=== PATIENT | male | born 1970 | race Caucasian/White ===

== ENCOUNTER 2022-01-22 12:45 | Emergency (ER) | payer OTHER, SELFPAY ==
--- NOTE | ~2022-01-22 | XR_ITS ---
EXAMINATION: XR foot RT min 3V DATE: 01/22/2022 13:09 INDICATION: Right foot injury and pain. TECHNIQUE: 4 views of right foot were obtained. COMPARISON: None. FINDINGS: Bone alignment is normal. No fracture. There is mild osteoarthritis of first metatarsophala ngeal joint and some of the midfoot joints. There is an enthesophyte at posterior aspect of calcaneal tuberosity. IMPRESSION: 1. Mild polyarticular osteoarthritis. Reviewed, dictated and finalized at location A.
[2022-01-22 12:56] VITALS: BP 146/91; PULSE 95; RESP 18; TEMP 36.3; O2SAT 98
[2022-01-22 13:01] VITALS: BP 146/91; PULSE 95; RESP 18; TEMP 36.3; O2SAT 98
--- NOTE | 2022-01-22 13:35 | ED.LOWEXIN ---
HPI - Extremity Injury (Lower) General Chief Complaint: Extremity Injury, Lower Stated Complaint: Right Foot Pain Time Seen by Provider: 01/22/22 13:35 Source: patient, RN notes reviewed and old records reviewed Mode of arrival: ambulatory Limitations: no limitations History of Present Illness HPI Narrative: 51-year-old male presents to the [facility] with complaints of right foot pain. Patient states that he was carrying some heavy objects when he rolled his foot a couple days ago. Spent yesterday golfing. Woke up today with lateral foot pain. No treatment prior to arrival. Patient is also requesting that his right ear get checked. Has had some pressure in it. Related Data Allergies Allergy/AdvReac Type Severity Reaction Status Date / Time No Known Allergies Allergy Verified 01/22/22 12:52 Review of Systems Review of Systems: All systems reviewed & are unremarkable except as noted in HPI and below Constitutional: Constitutional: Reports no additional constitutional complaints, Denies chills and Denies fever(s) Eyes: Eyes: Reports no additional eye complaints ENT: Reports as per HPI Cardiovascular: Cardiovascular: Reports no additional cardiovascular complaints Respiratory: Respiratory: Reports no additional respiratory complaints Gastrointestinal: Gastrointestinal: Reports no additional gastrointestinal complaints Musculoskeletal: Musculoskeletal: Reports as per HPI Integumentary/Breasts: Skin/Breast: Reports system reviewed and no additional complaints, except as docu Neurologic: Reports system reviewed and no additional complaints, except as documented Psychiatric: Psychiatric: Reports no additional psychiatric complaints Allergic/Immunologic: Allergic/Immunologic: Reports no additional allergic/immunologic complaints PMFSH Past Medical History Medical History Body mass index (BMI) of 40.1-44.9 in adult Family History Family History Mother Family history of diabetes mellitus in first degree relative Diabetes mellitus Grandparent Family history of lung cancer Family history of malignant neoplasm of breast Father COPD (chronic obstructive pulmonary disease) Hypoglycemia Sibling No problems noted. 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 There is no relevant family history pertinent to the patient complaint. Exam Const: General: healthy appearing, no acute distress and alert Nutritional Appearance: well nourished Orientation/consciousness: patient oriented x3 Limitations: no limitations HENMT: Head: normal to inspection Ears: external ears normal, EAC's normal and TM abnormal wth effusion serous on the right General nose exam: Normal external nose present Eyes: General: appearance normal, both eyes and all related structures Pupils: Equal, round and reactive pupils present Neck: Neck: normal visual inspection, no lymphadenopathy and no meningeal signs Chest: Chest palpation & inspection: normal inspection of the chest Resp: Effort & Inspection: normal respiratory effort and no use of accessory muscles Auscultation: clear to auscultation bilaterally, no crackles, no rales, no rhonchi and no wheezes Cardio: Rate: regular rate Rhythm: regular rhythm GI: GI Palp: Yes Soft to palpat
== END 2022-01-22 13:47 | disposition home or self-care (01) ==
PROVIDERS: Emergency Provider Nurse Practitioner; PCP Family Medicine
DX: S93.601A Unspecified sprain of right foot, initial encounter (principal); T14.90XA Injury, unspecified, initial encounter; H65.01 Acute serous otitis media, right ear
CPT/HCPCS: 73630; 99213; G0463

== ENCOUNTER 2023-08-21 09:50 | Outpatient (CLI) | payer OTHER, SELFPAY ==
--- NOTE | 2023-08-21 10:22 | ECG_ITS ---
SEE SCANNED COPY FOR CONFIRMED REPORT MTDD
== END 2023-08-21 09:51 | disposition home or self-care (01) ==
PROVIDERS: PCP Family Medicine; Visit Provider Physician Assistant
DX: Z01.818 Encounter for other preprocedural examination (principal); I10 Essential (primary) hypertension
CPT/HCPCS: 93005

== ENCOUNTER 2023-10-15 09:24 | Outpatient (CLI) | payer OTHER, SELFPAY ==
--- NOTE | 2023-10-15 09:28 | ECHO_ITS ---
Patient Info Name: Yasmany Herron Age: 52 years : 1970 Gender: Male Ht: 70 in Wt: 275 lbs BSA: 2.54 m2 HR: 97 bpm BP: 158 / 108 mmHg Heart Rhythm: Sinus Rhythm Technical Quality: Fair Exam Date: 10/15/2023 9:38 AM Exam Location: Echo Lab Patient Status: Outpatient Admit Date: 10/15/2023 Staff Ordering Physician: Andreina, Priscilla Lyman PA-C Job Training Specialist: Dee Akins RDCS Attending Provider: Andreina, Priscilla Lyman PA-C Referring Physician: Jordan NAIR; Exam Type: CA echo doppler color flow Study Info Indications I10 - Essential (primary) hypertension I51.7 - Cardiomegaly Strain analysis performed. Complete two-dimensional, color flow and Doppler transthoracic echocardiogram is performed. Summary 1. Complete two-dimensional, color flow and Doppler transthoracic echocardiogram is performed. 2. Left ventricular chamber dimension is normal. 3. Left ventricular systolic function is normal, estimated at 65-70%. 4. There is mildly increased left ventricular wall thickness. 5. The left ventricular diastolic function is grade I diastolic dysfunction. 6. Right ventricular systolic function is normal. 7. No significant valvular disease. Left Ventricle Left ventricular chamber dimension is normal. Left ventricular systolic function is normal, estimated at 65-70%. There is mildly increased left ventricular wall thickness. The left ventricular diastolic function is grade I diastolic dysfunction. Right Ventricle Right ventricular chamber dimension is normal. Right ventricular systolic function is normal. Left Atria Left atrial chamber dimension is normal. Right Atria Right atrial chamber dimension is normal. Atrial Septum Intact interatrial septum visualized by color flow imaging. Aortic Valve The aortic valve is trileaflet. There is no aortic valve stenosis. There is no aortic valve regurgitation. There is mild aortic valve calcification. Pulmonic Valve The pulmonic valve is not well visualized. There is no pulmonic regurgitation. Mitral Valve There is trace mitral valve regurgitation. The mitral valve annulus is mildly calcified. Tricuspid Valve There is trace tricuspid valve regurgitation. Pericardium/Pleural There is no pericardial effusion. Inferior Vena Cava Normal inferior vena cava with >50% collapse upon inspiration consistent with normal right atrial pressure, 3 mmHg. Aorta The aortic root size at the sinus of Valsalva is normal. Left Ventricular Outflow Tract Name Value Normal LVOT 2D LVOT Diameter 2.0 cm LVOT Doppler LVOT Peak Gradient 5 mmHg LVOT Mean Gradient 3 mmHg LVOT VTI 20 cm LVOT VTI/AV VTI Ratio 0.7 LVOT Stroke Volume 64 ml LVOT CO 5.2 l/min LVOT CI 2.1 l/min/m2 Pulmonic Valve Name Value Normal RVOT Doppler
--- NOTE | 2023-10-15 13:42 | WPDPFTINT ---
PFT Procedure Performed PFT Procedure Performed Spirometry with Pre/Post Bronchodilator Plethysmography (Lung Vol) Diffusing Cap (DLCO) Flow Vol Loop Spirometry w/o Bronchodil PFT Interpretation This is a pulmonary function test with spirometry, plethysmography and diffusing capacity. The test was performed and results interpreted in accordance with the 2019 and 2005 ATS/ERS Task Force guidelines respectively using the Global Lung Function Initiative-2012 reference equations. Patient demonstrated good effort and cooperation. Reproducibility criteria were met. The quality of the spirometry maneuver was Grade A. Findings: Spirometry: The contour the inspiratory and expiratory flow tracing are normal. The FVC is 4.44 L, 89% predicted. The FEV1 is 3.71 L, 94% predicted. The FEV1: FVC ratio is 83%. Plethysmography: The total lung capacity is 5.94 L, 85% predicted. The functional residual capacity is 2.44 L, 69% predicted. The residual volume is 1.50 L, 74% predicted. Diffusing capacity: The diffusing capacity unadjusted for hemoglobin and carboxyhemoglobin is 31.6, 103% predicted. The diffusing capacity adjusted for alveolar volume is 5.25, 115% predicted. Impression: The spirometry is normal without evidence of an obstructive abnormality. The lung volumes are normal. The diffusing capacity is normal. There are no prior studies for comparison
== END 2023-10-15 09:25 | disposition home or self-care (01) ==
LOC: ANHCARD 09:26
PROVIDERS: PCP Family Medicine; Visit Provider Physician Assistant
DX: Z68.41 Body mass index [BMI] 40.0-44.9, adult (principal); I51.7 Cardiomegaly; I10 Essential (primary) hypertension
CPT/HCPCS: 93306; 94375; 94726; 94729

== ENCOUNTER 2025-03-25 13:39 | Outpatient (CLI) | payer OTHER, SELFPAY ==
--- OUTSIDE RECORDS SUMMARY | 2025-03-25 16:53 | XMS_ITS | Clinical Summary ---
Author Organization [facility] Address [address] [place] [address] Care Team Providers Care Police Detective Name Role Phone Anirudh Randolph MD Primary Care Provider [phone] Source Comments [facility],non-owned Affiliates and Associated Physician Practices is amultiple site organization consisting of ambulatory clinics and hospital sitesin [place], [place], [place] and [place]. This disclosure is being madepursuant to the Care Everywhere program and may not contain all information available regarding this patient. Last updated 18.[facility] Allergies No known active allergies Medications * Be aware that medications may not be up to date on this document. Alwaysverify current medications with the patient. Propranolol HCl (INDERAL PO) Active Atorvastatin Calcium (LIPITOR PO) Active triamcinolone acetonide (KENALOG) 0.1 % creamIndication s:Allergic Contact Dermatitis Apply to affected area 2 times daily Reasons: Allergic Contact Dermatitis 80 g 7 Active predniSONE (DELTASONE) 10 MG tabletIndicatio ns:Allergic contact dermatitis due to plants, except food 40 mg po for 5 days, 20 mg po for 5 days, 10 mg po for 4 days. 34 Tab 7 Active Social History Tobacco Use Types Packs/Day Years Used Date Smoking Tobacco: Never Smokeless Tobacco: Never Sex and Gender Information Value Date Recorded Sex Assigned at Not on file Legal Sex Male 12:21 PM CDT Gender Identity Not on file Sexual Orientation Not on file Last Filed Vital Signs Vital Sign Reading Time Taken Comments Blood Pressure 146/96 11/13/2016 6:43 PM CDT Pulse 96 11/13/2016 6:43 PM CDT Temperature 36.7 C (98.1 F) 11/13/2016 6:43 PM CDT Respiratory Rate - - Oxygen Saturation 98% 11/13/2016 6:43 PM CDT Inhaled Oxygen Concentration - - Weight 140.6 kg (310 lb) 11/13/2016 6:43 PM CDT Height 177.8 cm (5' 10) 11/13/2016 6:43 PM CDT Body Mass Index 44.48 11/13/2016 6:43 PM CDT Plan of Treatment Health Maintenance Due Date Last Done Comments COLOGUARD (AGES 45-75) - COL ON CA SCREENING 1970 COLON MONITORING 1972 COLONOSCOPY - COLON CA SCREENING 1972 CT COLONOGRAPHY - COLON CA SCREENING 1970 Colorectal Cancer Screening 1970 FIT - COLON CA SCREENING 1972 FLEX SIG - COLON CA SCREENING 1972 HIV SCREENING 10/19/1987 HEPATITIS C SCREENING 10/14/1990 DTAP/TDAP/TD VACCINES (1 - Tdap) 10/19/1991 HEPATITIS B VACCINE (1 of 3 - 19+ 3-dose series) 10/19/1991 PNEUMOCOCCAL VACCINE 50+ (1 of 1 - PCV) 2022 ZOSTER VACCINE (1 of 2) 2022 DEPRESSION SCREENING 05/06/2024 COVID-19 VACCINE (1 - 2024-2 6 season) 2025 INFLUENZA VACCINE (#1) 2025 HIB VACCINE Aged Out No longer eligi ble based on patient's age to complete this topic HPV VACCINE Aged Out No longer eligi ble based on patient's age to complete this topic MENINGOCOCCAL (Group B) VACC INE SHARED DECISION-MAKING Aged Out No longer eligibl e based on patient's age to complete this topic MENINGOCOCCAL GROUPS A/C/Y/W VACCINE Aged Out No longer eligible b ased on patient's age to complete this topic Insurance [facility] Care Teams Police Detective Relationship Specialty Start Date End Date Anirudh Randolph MD [address] [place] [address] PCP - General Family Medicine 11/13/16
--- OUTSIDE RECORDS SUMMARY | 2025-03-25 16:53 | XMS_ITS ---
Author Organization Unknown ENCOUNTERS Encounter Performer Location Date Diagnosis Diagnosis Status Outpatient Priscilla Ortega [facility] [address] [place] [address] [id number] B[place]JAMIN Outpatient [facility] [address] [place] [address] [id number] BENJAMIN *Note: Encounters from your own facility or health system may be excluded. Allergies, Adverse Reactions, Alerts Allergen Type Severity Identification Date Medications Name Date Quantity Days Supplied GPI Number
== END 2025-03-25 13:40 | disposition home or self-care (01) ==
LOC: ANHAUDIO 13:39
PROVIDERS: PCP Family Medicine; Visit Provider Otolaryngology Otolaryngology/Facial Plastic Surgery
DX: H90.3 Sensorineural hearing loss, bilateral (principal)
CPT/HCPCS: 92557; 92567